=== PATIENT | male | born 1970 | race African-American/Black ===

== ENCOUNTER 2017-06-07 15:26 | Emergency (ER) | payer SELFPAY | END 2017-06-07 16:34 | disposition home or self-care (01) | LOC: SCSER 15:26 | DX: J11.1 Influenza due to unidentified influenza virus with other respiratory manifestations (principal); H66.92 Otitis media, unspecified, left ear; F17.210 Nicotine dependence, cigarettes, uncomplicated | CPT/HCPCS: 99283 ==

== ENCOUNTER 2018-05-26 09:38 | Emergency (ER) | payer SELFPAY ==
[2018-05-26] MEDS ORDERED: Ondansetron PF 4 MG/2 ML Vial ONE (09:48)
[2018-05-26] MEDS ORDERED: Morphine 4 MG/ML VIAL ONE (09:48)
[2018-05-26 09:57] LABS: Hemoglobin 15.4 g/dL (14.0-18.0); Mean Corpuscular HGB CONC 33.6 g/dL (32.0-36.0); Mean Corpuscular Hemoglobin 33.3 pg (27.0-31.0); Mean Corpuscular Volume 99.1 fL (78.0-98.0); Mean Platelet Volume 6.6 fL (7.4-10.4); Platelet Count 443 thou/uL (130-400); RBC Distribution Width 13.2 % (11.5-14.5); Red Blood Cell (RBC) Count 4.63 mill/uL (4.70-6.10); White Blood Cell (WBC) Count 9.3 thou/uL (4.8-10.8)
[2018-05-26] MEDS ORDERED: PROPOFOL 20 ML ONE (10:07)
--- NOTE | 2018-05-26 10:12 | RAD ---
RADIOGRAPH LEFT SHOULDER 2 VIEWS: DATE: 05/26/2018. TIME: 8:54 a.m. ATTENTION FREDY IN BILLING: This is a 2-view study, not a 3 view. HISTORY: A 48-year-old male with traumatic left shoulder pain. COMPARISON: None. FINDINGS: There is anterior dislocation of the humeral head relative to the glenoid. No fracture is identified . IMPRESSION: Acute, traumatic, anterior dislocation of the glenohumeral joint of the left shoulder. POS: [facility]
[2018-05-26 10:15] LABS: ALT (SGPT) 15 U/L (8-55); AST (SGOT) 22 U/L (5-34); Albumin 4.4 g/dL (3.5-5.0); Alkaline Phosphatase 175 U/L (40-150); Anion Gap 21 mmol/L (10-20); BUN (Urea Nitrogen) 15 mg/dL (8.9-20.6); Bilirubin, Total 0.3 mg/dL (0.2-1.2); Calc. Creatinine Clearance 0 mL/min (70-130); Calcium 9.7 mg/dL (7.8-10.44); Carbon Dioxide 15 mmol/L (22-29); Chloride 106 mmol/L (98-107); Estimated GFR-MDRD 64; Globulin 3.5 g/dL (2.4-3.5); Glucose 122 mg/dL (70-105); Protein, Total 7.9 g/dL (6.0-8.3); Sodium 138 mmol/L (136-145)
[2018-05-26 10:21] LABS: Lymphocytes 31 % (21-51); MDiff Complete? YES; Macrocytosis SLIGHT = 6-15 cells (100X) (0-5/hpf); Monocytes 8 % (0-10); Neutrophil 35 % (42-75); PLT Morphology Comment Appears Increased; Reactive Lymphocytes 26 % (0-10)
--- NOTE | 2018-05-26 10:35 | CT ---
CT OF THE BRAIN WITHOUT COTNRAST: COMPARISON: None. HISTORY: Fell off a roof with left shoulder injury/dislocation. Head trauma. TECHNIQUE: Multiple contiguous axial images were obtained in a CT of the brain without contrast. FINDINGS: The brain is normal in morphology and attenuation without focal lesions or confluent areas of infarct ion. There is no evidence of hydrocephalus, intracranial hemorrhage, or extraaxial fluid collection. The calvarium and overlying soft tissues are unremarkable. The visualized paranasal sinuses and mast oid air cells are well aerated. IMPRESSION: No evidence of acute intracranial abnormality. Dr. Lizarraga notified of the findings at 10:03 a.m. on 05/26/2018. CODE CR POS: [facility]
--- NOTE | 2018-05-26 10:40 | CT ---
CT CERVICAL SPINE WITHOUT CONTRAST: COMPARISON: None. HISTORY: Fall from a roof with head trauma and neck pain. TECHNIQUE: Multiple contiguous axial images were obtained in a CT of the cervical spine without contrast. Sagit jovanna and coronal reformats were performed. FINDINGS: The intervertebral disks are narrowed throughout the cervical spine with small surrounding osteophyte s. The vertebral bodies demonstrate normal height without fracture or subluxation. No prevertebral soft tissue swelling is seen. The posterior facets are well aligned. Normal alignment of the skull base with the cervical spine is seen. IMPRESSION: Degenerative changes of the cervical spine without acute osseous abnormality. Dr. Lizarraga notified of the findings at 10:05 a.m. on 05/26/2018. CODE CR POS: [facility]
--- NOTE | 2018-05-26 10:49 | CT ---
CT THORAX WITH CONTRAST CT ABDOMEN WITH CONTRAST CT PELVIS WITH CONTRAST: (trauma protocol) DATE: 05/26/2018. TIME: 10:05 a.m. HISTORY: A 48-year-old male status post acute trauma to the chest, abdomen, and pelvis due to fall from roof. Dr. Bajwa verbally gave this level II trauma report to Dr. Lizarraga at 10:16 a.m. on 05/26/2018. TECHNIQUE: IV administration of iodinated contrast media. No oral contrast media. Single phase scans of thorax, abdomen, and pelvis. Sagittal reconstructions of thoracic and lumbar spine. FINDINGS: Thorax: Lungs: No contusion. Pleura: No pneumothorax or hemothorax. Thoracic aorta: No dissection or rupture. Mediastinum: No hematoma. Abdomen and Pelvis: Liver: No laceration. Spleen: No laceration. Pancreas: No surrounding fluid or fat stranding. Kidneys: No hydronephrosis or laceration. Bladder: No gross evidence of rupture. Abdominal aorta: No dissection. Small bowel: No dilation. Colon: No adjacent fat stranding. Free air: None. Free fluid: None. Skeleton: Ribs: No grossly displaced acute fracture. Sternum: No grossly displaced acute fracture. Thoracic spine: No acute compression fracture. Lumbar spine: No acute compression fracture. Pelvis: No grossly displaced acute fracture. No dislocation. The left humeral head is dislocated anteriorly relative to the glenoid. No fracture is identified as sociated with this. IMPRESSION: 1)Acute, traumatic, anterior dislocation of the glenohumeral joint of the left shoulder. 2)No other acute traumatic injury within the thorax, abdomen, or pelvis. CODE CR jn [] POS: [facility]
[2018-05-26] MEDS ORDERED: Bacitracin Zinc 1 Packet ONE (11:07)
--- NOTE | 2018-05-26 11:10 | RAD ---
RADIOGRAPH LEFT SHOULDER 2 VIEWS: DATE: 05/26/2018. TIME: 9:51 a.m. ATTENTION FREDY IN BILLING: This is a 2-view study, not a 3-view. HISTORY: A 48-year-old male status post reduction of traumatic left shoulder dislocation. COMPARISON: 05/26/2018, 8:54 a.m. FINDINGS: The glenohumeral joint is now located. No fracture. Normal appearance of AC joint. IMPRESSION: 1. Normal. 2. Successful reduction of the acute, traumatic, anterior dislocation of the glenohumeral joint of t he left shoulder. POS: [facility]
== END 2018-05-26 11:35 | disposition home or self-care (01) ==
LOC: ERS 09:38
DX: S09.90XA Unspecified injury of head, initial encounter (principal); S43.005A Unspecified dislocation of left shoulder joint, initial encounter; S10.91XA Abrasion of unspecified part of neck, initial encounter; S40.211A Abrasion of right shoulder, initial encounter; I10 Essential (primary) hypertension; F17.210 Nicotine dependence, cigarettes, uncomplicated; W13.2XXA Fall from, out of or through roof, initial encounter
CPT/HCPCS: 23650; 70450; 71260; 72125; 74177; 80053; 85025; 94760; 96361; 96374; 96375; 99152; 99153; J2270; J2405; J2704